=== PATIENT | female | born 1945 | race Caucasian/White ===

== ENCOUNTER → 2018-11-03 | Outpatient (CLI) | payer MEDICARE, MEDICAID ==
--- NOTE | 2018-11-03 12:31 | RADIOLOGY IMAGING REPORT ---
FACILITY: [facility] [place] PATIENT NAME: Lenka Francis : 1945 MR: [id number] V: [id number] EXAM DATE: ORDERING PHYSICIAN: SIXTO SPENCER TECHNOLOGIST: Location: [facility] [place] Patient: Lenka Francis : 1945 Visit/Account:[id number] Date of Sevice: 11/03/2018 HIPS BILATERAL HISTORY: Pain and decreased range of motion Additional history: None COMPARISON: None. FINDINGS: Pelvic girdle and hips are intact. The hip joints are unremarkable in appearance. Joint spaces well -maintained and there is no radiographic evidence of arthropathy. SI joints are open. IMPRESSION: Normal study. Given the patient's age hip joints are surprisingly free of arthropathic changes. Report Dictated By: Jeromy Bailey MD at 11/03/2018 12:22 PM Report E-Signed By: Jeromy Bailey MD at 11/03/2018 12:25 PM WSN:[id number]
== END ==
LOC: RAD 08:41
PROVIDERS: ATTEND Nurse Practitioner
DX: M25.551 Pain in right hip (principal); M25.552 Pain in left hip
CPT/HCPCS: 73522